=== PATIENT | male | born 1990 | race Two or more races ===

== ENCOUNTER 2018-01-21 17:00 | Outpatient (RCR) | payer OTHER, SELFPAY ==
--- NOTE | 2017-12-24 16:02 | HP.PTEVAL ---
Patient's Visit Information SUNSHINE DONALDSON is a 27 year old M referred to Physical Therapy by CONNER ALMENDAREZ with a diagnosis of Pain in R shoulder. Date of Evaluation: 12/24/17 Physical Therapist: Melanie Crawley - Visit Plan Frequency: 2x /Week Duration: 4 Weeks Plan: 2X/ week for 4 weeks for R shld PROM, AAROM, AROM, postural and scapular strength, RC strength with HEP and modalities PRN. Discussed: avoiding sleeping on R side, avoid sleeping with arm overhead and avoid repetitive movements (especially across body) - Subjective Subjective: R shoulder pain at work and when sleeping. When he goes to raise his arm overhead for 10 seconds and he gets sore and hard to raise his arm over head. When he was younger he thinks that he hurt it and multiple things at the [employer] may have hurt it. It wakes him up at night with numbess and pain. He has pain just passed the elbows and maybe some into the finger. No neck pain. He sleeps with his R arm under head when on stomach or increase pain when lay on R side. He has had an x-ray..... No talk about MRI or injections. He is R handed. This has been going on for 2 years. He has not tried any kind of exercises for it. - Pain R shoulder pain Pain Intensity (Out of 10): 2 Pain Intensity Range: 7 Comment: with winding hose.... - Objective R shld AROM: flex 145 degrees, IT to T12, ER 41 degrees and abd 121 degrees. L shld AROM: flexion 157 degrees, IR to T8, ER 47 degrees, and abd 155 degrees. Posture: rounded shoulders and slouched. Palpation: no tenderness at supraspinatus and under acromion. +HK. +Empty Can test for pain and weakness - Goals Goal 1:: I HEP Goal Time Frame: 2-4 Weeks Goal 2:: Increase R shoulder AROM to equal that of the L (at time of eval: L shld AROM: flexion 157 degrees, IR to T8, ER 47 degrees, and abd 155 degrees) Goal Time Frame: 4-6 Weeks Goal 3:: Be able to real in hose at work with R rhondaler without having pain Goal Time Frame: 4-6 Weeks Goal 4:: Be able to sleep through the night without pain Goal Time Frame: 4-6 Weeks - Rehabilitation Potential Rehabilitation Potential: Excellent - Anticipated Interventions Patient/Client Instruction: Educate patient on: Condition, Plan of Care For the Purpose of:: To decrease pain, To decrease swelling/inflammation, To increase ROM, To improve nutrient delivery to tissue, To improve muscle performance and motor function, To improve ability to perform ADL's, To increase tolerance to activity/condition/position, To improve performance and independence with ADL's, To improve health of tissue, To increase flexibility/ROM Therapeutic Exercise to Include: Strength training, Postural training, Flexibilty training, Passive ROM, Active ROM, Scapular Strength/Stabilization For the Purpose of:: To decrease pain, To decrease swelling/inflammation, To increase ROM, To improve nutrient delivery to tissue, To improve muscle performance and motor function, To improve ability to perform ADL's, To improve health of tissue, To decrease soft tissue restriction, To increase flexibility/ROM Manual Therapy Techniques to Include: Mobilization, Passive ROM For the Purpose of:: To increase ROM, To improve nutrient delivery to tissue IF ES: Yes Cryotherapy (ice pack, ice massage): Yes Ultrasound (thermal/non thermal): Yes For the Purpose of:: To decrease pain, To decrease swelling/inflammation, To increase ROM, To improve nutrient delivery to tissue, To improve muscle performance and motor function, To improve ability to perform ADL's, To increase tolerance to activity/condition/position, To improve health of tissue, To decrease soft tissue restriction, To increase flexibility/ROM Thank you for the opportunity to evaluate your patient. For Medicare and Medicare HMO plans, please review the plan of care and approve it. It will need to be FAXED BACK to us at [phone] for Medicare purposes. Please let me know if there are questions or concerns regarding this plan of care. Physician Signature: Date:
--- NOTE | 2018-01-21 17:24 | HP.PTDCSUM ---
HP - PT D/C Summary It has been my pleasure to treat SUNSHINE DONALDSON under orders from CONNER ALMENDAREZ, for the diagnosis of Pain in R shoulder for a total of 5 visit(s). Discharge Date: 01/21/18 Please see the following information for a summary of their discharge status. - Subjective Subjective: Pt reports that he has pain when he is sleeping and rolled on R side and wakes up. Reaching above his head his R arm gets tired faster. 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 He is doing HEP: IR/ER with Blue band. Pt does not feel that his pain is bad enough to keep him coming to PT and wishes to do a HEP - Pain R shoulder pain Pain Intensity (Out of 10): 2 - Overall Improvement % Improvement: 50 - Objective Objective/Function: AROM: 165 flex. 154 abd R. 61 degrees ER. T12 IR. Posture: pT DOES NEED verbal cues to maintain good posture at times. - Goals Goal 1:: I HEP Goal Progress: Goal Met Goal 2:: Increase R shoulder AROM to equal that of the L (at time of eval: L shld AROM: flexion 157 degrees, IR to T8, ER 47 degrees, and abd 155 degrees) Goal Progress: Goal Met Goal 3:: Be able to real in hose at work with Sami talamatnes without having pain Goal Progress: Progressing Goal 4:: Be able to sleep through the night without pain Goal Progress: Goal Met - Plan Plan: DC PT to HEP - D/C Information Discharge Comments: DC PT to HEP If there are questions or concerns regarding this patient's physical therapy, please feel free to call me at [phone]. Thank you for the referral of this patient. Sincerely, Melanie Crawley
== END 2018-01-21 19:00 | disposition home or self-care (01) ==
LOC: PT 17:00
DX: M25.511 Pain in right shoulder (principal)
CPT/HCPCS: 97014; 97110; 97161; 97530; G0283; G8981; G8982

== ENCOUNTER 2021-01-20 05:46 | Day surgery (SDC) | payer OTHER, SELFPAY ==
[2021-01-20] VITALS (12 sets, daily range): BP systolic 017–147; BP diastolic 58–106; PULSE 62–70; RESP 16–18; TEMP 36.4–36.8; O2SAT 95–100; BMI 27.8
--- NOTE | 2021-01-20 06:13 | PCM.HP.BLA ---
History and Physical Date of Admission: 01/20/21 Intake Visit Reasons: CSCOPE, EGD/ DIARRHEA Chief Complaint: change in bowel habits Pot Liner Required: No Is patient in pain?: No Allergies No Known Allergies Allergy (Verified 01/03/21 14:57) Medications bismuth subsalicylate 262 mg/15 mL oral suspension 524 mg PO Q30-60M PRN 01/03/21 [History Confirmed 01/03/21] multivitamin 1 tab PO DAILY 01/03/21 [History Confirmed 01/03/21] PFSH Medical History (Updated 01/03/21 @ 15:[address] Vinnie Hillman MD) Back pain GERD (gastroesophageal reflux disease) Surgical History (Updated 01/03/21 @ 14:54 by Dayami Pugh) No pertinent past surgical history Family History (Updated 01/03/21 @ 14:55 by Dayami Pugh) Father Colon polyp Social History (Updated 01/03/21 @ 14:55 by Dayami Pugh) Smoking Status: Former smoker HPI HPI HPI: SUNSHINE DONALDSON, is a 30 M who presents to the office today for surgical consultation. The patient is referred by the [facility] with request to proceed with combined esophagogastroduodenoscopy and colonoscopy. A request for targeted biopsies and random biopsies to evaluate for possible IBD and microscopic colitis The patient states that now for 9 years he has had problems with abdominal bloating constipation alternating with diarrhea. Very infrequently he will notice some bright red blood per rectum but that usually after a bout of constipation. Long ago he started psyllium seed fiber which did provide some improvement for the constipation. He also however takes Pepto-Bismol as needed for the diarrhea. While in the he did smoke cigarettes and chew tobacco. He has since departed from the and he quit using tobacco products approximately 2013. He has not had any unexpected weight loss. There is a family history with his father having had colon polyps there is no family history of colon cancer. There is no family history of Crohn's disease or ulcerative colitis. The patient's not had any fever or vomiting. He enjoys lactose-containing products. He does not sense that he is lactose intolerance. He does not sense that he has gluten insufficiency. It is of note that he works for [employer]. He had the symptoms however when he was so I do not sense that the products that he is using are likely the source ROS General General: Yes fatigue; No weight change, appetite, colon cancer, breast cancer or weakness HEENT HEENT: No difficulty swallowing, eye injury, eye surgery, swollen glands or hoarseness Endo Endocrine: No thyroid disease, diabetes mellitus, thyroid cancer, Hair loss, heat intolerance or cold intolerance Musc Musculoskeletal: Yes back problems; No arthritis, rheumatoid arthritis, gout or joint pain Cardio Cardiovascular: No murmur, pacemaker, heart disease, atrial fibrillation, high blood pressure, heart attack, heart stent, palpitations, shortness of breat with exertion or chest pain Psych Psychiatric: No depression, anxiety or hearing voices Resp Respiratory: No shortness of breath, No sleep apnea, No cough, No COPD, No asthma, No emphysema and No wheezing Gastro Gastrointestinal: Yes abdominal pain, No nausea or vomiting, Yes diarrhea, Yes constipation, Yes blood in stool, Yes acid reflux, No hemorrhoids, No ulcers, No gallbladder problem and No black,tarry stools Dirk Hematologic: No blood thinners, No blood disorders, No bleeding, No anemia and No blood clots Neuro Neurologic: No weakness Exam Const General: cooperative, healthy appearing, comfortable and no acute distress Nutritional Appearance: average body habitus Orientation: alert and awake [facility] Head: normal to inspection Eyes General: appearance normal, both eyes and all related structures Neck Neck: normal visual inspection Carotids: normal carotid upstroke and no bruits Chest Chest palpation & inspection: normal inspection of the chest Resp Effort & Inspection: normal respiratory effort Auscultation: clear to auscultation bilaterally Cardio Rate: regular rate Rhythm: regular rhythm GI Palpation: soft and no hepatosplenomegaly Other[place] [facility] [place] Spine: normal cervical lordosis Neuro General: patient alert and patient awake Extrem General: no calf tenderness Psych Appearance: grossly normal Assessment and Plan Assessment and Plan (1) Abdominal pain: Status: Acute Qualifiers: Abdominal location: generalized Qualified Code(s): R10.84 - Generalized abdominal pain (2) Constipation: Status: Acute Qualifiers: Constipation type: unspecified constipation type Qualified Code(s): K59.00 - Constipation, unspecified (3) Diarrhea: Status: Acute Qualifiers: Diarrhea type: unspecified type Qualified Code(s): R19.7 - Diarrhea, unspecified Plan - Dr. Vinnie Hillman MD: 30-year-old gentleman with now available long history of abdominal complaints of generalized discomfort bloating constipation alternating with diarrhea. He has not had any investigative testing today. I do concur with his referring [facility] staff that he would benefit from a esophagogastroduodenoscopy with biopsy and colonoscopy with biopsy or polypectomy if indicated. He is aware of the technique, benefit, risk, alternatives. I agree with focused and random biopsies were appropriate. He has had an opportunity to ask and have questions answered. I did briefly discuss COVID-19 and vaccination recommendations. The patient has respectfully declined. Appreciate the opportunity of assisting with the surgical care Copy: [facility] Vinnie Hillman M.D., F.A.C.S. I have re-examined the patient. There are no clinical changes since date of exam. Vinnie Hillman M.D., F.A.C.S.
[2021-01-20] MEDS: Lactated Ringers 1,000 ML 15 ML IV (06:30)
--- NOTE | 2021-01-20 07:00 | EGD_PTH ---
PATIENT: SUNSHINE DONALDSON LOC: EN U#:[id number] AGE/SX: 30/M ROOM: RE01/20/[address]: Dr. Vinnie Hillman MD : 1990 BED: DIS: 01/20/2021 SPEC #: [id number] RECD: 01/20/21 10:31 STATUS: [facility]IT [facility]WS #: [id number] THELMA: 01/20/21 07:[address]: Vinnie Hillman DEPT: SURGICAL PATHOLOGY RECD BY: Marlen Jeffrey ENTERED: 01/20/21 11:49 SP TYPE: EGD BIOPSY OTHR DR: [facility] Tissues: A - Duodenum, NOS B - Gastric mucous membrane C - Esophagus, NOS D - Esophagus, NOS E - COLON BIOPSY Procedures: Special Stain Group II Surgery Specimen Level IV Alcian Blue/PAS (control) HEADER OPERATION: Colonoscopy, EGD (MOD) PRE-OP DIAGNOSIS: Acute abdominal pain, acute constipation, acute diarrhea TISSUE SUBMITTED: A ? Duodenum biopsy, B ? Antrum biopsy for H. pylori and path, C ? Distal esophagus biopsy, D ? Mid esophagus biopsy, E ? Random colonic biopsy MICROSCOPIC DIAGNOSIS A. Duodenum, biopsy: A fragment of duodenal mucosa, no pathologic diagnosis. B. Antrum, biopsy: Mild gastritis. See microscopic description and comment. C. Distal esophagus, biopsy: Fragments of gastroesophageal mucosa with moderate chronic inflammation. Intestinal metaplasia (goblet cell metaplasia) not identified. See comment. D. Mid esophagus, biopsy: Fragments of squamous epithelium, no pathologic diagnosis. E. Colon, random biopsy: Fragments of colonic mucosa, no pathologic diagnosis. SJ:rg 01/23/2021 COMMENT B. The results of immunohistochemistry for Helicobacter pylori will be reported separately ([id number]). C. Alcian blue/PAS stain with matched control is used in the evaluation of the specimen. MICROSCOPIC DESCRIPTION Slides are reviewed. B. The specimen shows fragments of gastric mucosa with chronic inflammatory cell infiltrates in the lamina propria consisting of lymphocytes and plasma cells, consistent with mild chronic gastritis. GROSS DESCRIPTION A - Received in fixative is one container labeled with the patient's name and designated duodenum biopsy. The specimen consists of one irregular fragment of light bains soft tissue that measures 0.5 x 0.3 x 0.1 cm. The specimen is totally submitted in one cassette. B - Received in fixative is one container labeled with the patient's name and designated gastric antrum. The specimen consists of one irregular fragment of light bains soft tissue that measures 0.5 x 0.3 x 0.1 cm. The specimen is totally submitted in one cassette. C - Received in fixative is one container labeled with the patient's name and designated distal esophagus biopsy. The specimen consists of multiple irregular fragments of light bains soft tissue that in aggregate measure 1 x 0.5 x 0.1 cm. The specimen is totally submitted in one cassette. D - Received in fixative is one container labeled with the patient's name and designated mid esophagus biopsy. The specimen consists of multiple irregular fragments of light bains soft tissue that in aggregate measure 0.5 x 0.2 x 0.1 cm. The specimen is totally submitted in one cassette. E - Received in fixative is one container labeled with the patient's name and designated random colon biopsy. The specimen consists of multiple irregular fragments of light bains soft tissue that in aggregate measure 2 x 0.7 x 0.1 cm. The specimen is totally submitted in one cassette. / AM:jacob 01/20/21 TC:3 CPT: 51682 x5, 14550
--- NOTE | 2021-01-20 07:00 | IMM_PTH ---
PATIENT: SUNSHINE DONALDSON LOC: EN U#:[id number] AGE/SX: 30/M ROOM: RE01/20/[address]: Dr. Vinnie Hillman MD : 1990 BED: DIS: 01/20/2021 SPEC #: [id number] RECD: 01/20/21 13:35 STATUS: MOHIT REQ #: [id number] THELMA: 01/20/21 07:[address]: Vinnie Hillman DEPT: IMMUNOHISTOCHEMISTRY RECD BY: Soraida Hope ENTERED: 01/20/21 13:35 SP TYPE: IMMUNO OTHR DR: [facility] Tissues: B - Stomach, NOS Procedures: H Pylori (initial) PHYSICIAN & INSTITUTION [place] [id number] SPECIMEN INFORMATION: Tissue Source: B ? Antrum biopsy Clinical Info: Acute abdominal pain, acute constipation, acute diarrhea Specimen Number: [id number] CPT code: 50569 METHODOLOGY: Deparaffinized sections of prefer/formalin-fixed tissue or PAP/DQ stained slides are incubated with monoclonal/polyclonal antibodies/oligonucleotide probes. Localization is made via biotin free immunoperoxidase method. Appropriate controls are performed and reacted as expected. Results on target cell population are indicated in the following table: RESULTS: ANTIBODY / CLONE RESULT Block B H Pylori (polyclonal) negative These tests were developed and their performance characteristics determined by [facility]. They may not have been cleared or approved by the U.S. Food and Drug Administration. The FDA has determined that such clearance or approval is not necessary. INTERPRETATION: B. Antrum biopsy: Negative for Helicobacter pylori organisms. LOBO:jacob 01/23/2021
[2021-01-20] MEDS: Midazolam 5 MG/ML Syringe ×2 (07:05)
[2021-01-20] MEDS: DiphenhydrAMINE 50 MG/ML Syringe (07:05)
--- NOTE | 2021-01-20 07:41 | OP.CCLET_ITS ---
01/20/2021 [facility] Re : Upper GI endoscopy procedure for [facility] This procedure was performed on Wednesday, January 20, 2021. My impressions and recommendations are as follows: Impressions : - LA Grade A reflux esophagitis. Biopsied. - Z-line variable, 40 cm from the incisors. - Small hiatal hernia. - Erythematous mucosa in the antrum. Biopsied. - Normal examined duodenum. Biopsied. Recommendations : - Discharge patient to home. - Resume previous diet. - Continue present medications. - Telephone my office for pathology results in 1 week. Will await path results prior to further recommendations. Hiatal hernia and reflux changes noted but all findings appear somewhat mild. My findings are described in the full procedure note, which is enclosed. If I can be of further assistance, please feel free to contact me at Doctor phone number(s): Work: . Sincerely, Vinnie Hillman MD 01/20/2021 7:41:27 AM This report has been signed electronically.
--- NOTE | 2021-01-20 07:41 | OP.EGD_ITS ---
Patient Name: Lul Mckeon Procedure Date: 01/20/2021 6:58 AM Date of : 1990 Age: 30 Procedure: Upper GI endoscopy Indications: Generalized abdominal pain Providers: Vinnie Hillman MD Medicines: Midazolam 5 mg IV, Meperidine 100 mg IV, Diphenhydramine 25 mg IV Complications: No immediate complications. Procedure: Pre-Anesthesia Assessment: - Prior to the procedure, a History and Physical was performed, and patient medications and allergies were reviewed. The patient's tolerance of previous anesthesia was also reviewed. The risks and benefits of the procedure and the sedation options and risks were discussed with the patient. All questions were answered, and informed consent was obtained. Prior Anticoagulants: The patient has taken no previous anticoagulant or antiplatelet agents. ASA Grade Assessment: II - A patient with mild systemic disease. After reviewing the risks and benefits, the patient was deemed in satisfactory condition to undergo the procedure. After obtaining informed consent, the endoscope was passed under direct vision. Throughout the procedure, the patient's blood pressure, pulse, and oxygen saturations were monitored continuously. The gastroscope was introduced through the mouth, and advanced to the second part of duodenum. The upper GI endoscopy was accomplished without difficulty. The patient tolerated the procedure well. Moderate Sedation: Moderate (conscious) sedation was personally administered by the endoscopist. The following parameters were monitored: oxygen saturation, heart rate, blood pressure, and response to care. Total physician intraservice time was 15 minutes. Scope In: 7:10:42 AM Scope Out: 7:19:19 AM Total Procedure Duration Time 0 hours 8 minutes 37 seconds Findings: LA Grade A (one or more mucosal breaks less than 5 mm, not extending between tops of 2 mucosal folds) esophagitis with no bleeding was found 40 cm from the incisors. Biopsies were taken with a cold forceps for histology. The Z-line was variable and was found 40 cm from the incisors. A small hiatal hernia was present. Diffuse mildly erythematous mucosa without bleeding was found in the gastric antrum. This was biopsied with a cold forceps for histology. The examined duodenum was normal. Biopsies were taken with a cold forceps for histology. Impression: - LA Grade A reflux esophagitis. Biopsied. - Z-line variable, 40 cm from the incisors. - Small hiatal hernia. - Erythematous mucosa in the antrum. Biopsied. - Normal examined duodenum. Biopsied. Recommendation: - Discharge patient to home. - Resume previous diet. - Continue present medications. - Telephone my office for pathology results in 1 week. Will await path results prior to further recommendations. Hiatal hernia and reflux changes noted but all findings appear somewhat mild. Procedure Code(s): --- Professional --- 91417, Esophagogastroduodenoscopy, flexible, transoral; with biopsy, single or multiple 60634, 59, Moderate sedation services provided by the same physician or other qualified health patient care provider performing the diagnostic or therapeutic service that the sedation supports, requiring the presence of an independent trained observer to assist in the monitoring of the patient's level of consciousness and physiological status; initial 15 minutes of intraservice time, patient age 5 years or older Diagnosis Code(s): --- Professional --- K21.0, Gastro-esophageal reflux disease with esophagitis K22.8, Other specified diseases of esophagus K44.9, Diaphragmatic hernia without obstruction or gangrene K31.89, Other diseases of stomach and duodenum R10.84, Generalized abdominal pain CPT copyright 2017 [employer]. All rights reserved. The codes documented in this report are preliminary and upon skiff operator review may be revised to meet current compliance requirements. Vinnie Hillman MD 01/20/2021 7:41:27 AM This report has been signed electronically. Number of Addenda: 0 Note Initiated On: 01/20/2021 6:58 AM
--- NOTE | 2021-01-20 07:44 | OP.COLON_ITS ---
Patient Name: Lul Mckeon Procedure Date: 01/20/2021 7:20 AM Date of : 1990 Age: 30 Procedure: Colonoscopy Indications: Generalized abdominal pain, Clinically significant diarrhea of unexplained origin Providers: Vinnie Hillman MD Medicines: Midazolam 1.5 mg IV, Meperidine 50 mg IV Patient Profile: Last Colonoscopy: none. The patient's first colonoscopy is today. Complications: No immediate complications. Procedure: Pre-Anesthesia Assessment: - Prior to the procedure, a History and Physical was performed, and patient medications and allergies were reviewed. The patient's tolerance of previous anesthesia was also reviewed. The risks and benefits of the procedure and the sedation options and risks were discussed with the patient. All questions were answered, and informed consent was obtained. Prior Anticoagulants: The patient has taken no previous anticoagulant or antiplatelet agents. ASA Grade Assessment: II - A patient with mild systemic disease. After reviewing the risks and benefits, the patient was deemed in satisfactory condition to undergo the procedure. After I obtained informed consent, the scope was passed under direct vision. Throughout the procedure, the patient's blood pressure, pulse, and oxygen saturations were monitored continuously. The Colonoscope was introduced through the anus and advanced to the cecum, identified by appendiceal orifice and ileocecal valve. The colonoscopy was performed without difficulty. The patient tolerated the procedure well. The quality of the bowel preparation was good. The ileocecal valve and the appendiceal orifice were photographed. Moderate Sedation: Moderate (conscious) sedation was administered by the endoscopy nurse and supervised by the endoscopist. The following parameters were monitored: oxygen saturation, heart rate, blood pressure, and response to care. Total physician intraservice time was 15 minutes. Scope In: 7:23:55 AM Scope Withdrawal Time 0 hours 6 minutes 42 seconds Scope Out: 7:35:21 AM Total Procedure Duration Time 0 hours 11 minutes 26 seconds Findings: The perianal and digital rectal examinations were normal. The colon (entire examined portion) appeared normal. Biopsies for histology were taken with a cold forceps from the entire colon for evaluation of microscopic colitis. Impression: - The entire examined colon is normal. Biopsied. Recommendation: - Discharge patient to home. - Resume previous diet. - Continue present medications. - Repeat colonoscopy age 49 for screening purposes. - Telephone my office for pathology results in 1 week. Colon what normal in appearance, random biopsy results pending. Procedure Code(s): --- Professional --- 25559, Colonoscopy, flexible; with biopsy, single or multiple 55125, 59, Moderate sedation services provided by the same physician or other qualified health healthcare specialist performing the diagnostic or therapeutic service that the sedation supports, requiring the presence of an independent trained observer to assist in the monitoring of the patient's level of consciousness and physiological status; initial 15 minutes of intraservice time, patient age 5 years or older Diagnosis Code(s): --- Professional --- R10.84, Generalized abdominal pain R19.7, Diarrhea, unspecified CPT copyright 2017 [employer]. All rights reserved. The codes documented in this report are preliminary and upon director of labor and delivery review may be revised to meet current compliance requirements. Vinnie Hillman MD 01/20/2021 7:44:32 AM This report has been signed electronically. Number of Addenda: 0 Note Initiated On: 01/20/2021 7:20 AM
--- NOTE | 2021-01-20 07:45 | OP.CCLET_ITS ---
01/20/2021 [facility] Re : Colonoscopy procedure for Lul [facility] This procedure was performed on Wednesday, January 20, 2021. My impressions and recommendations are as follows: Impressions : - The entire examined colon is normal. Biopsied. Recommendations : - Discharge patient to home. - Resume previous diet. - Continue present medications. - Repeat colonoscopy age 49 for screening purposes. - Telephone my office for pathology results in 1 week. Colon what normal in appearance, random biopsy results pending. My findings are described in the full procedure note, which is enclosed. If I can be of further assistance, please feel free to contact me at Doctor phone number(s): Work: . Sincerely, Vinnie Hillman MD 01/20/2021 7:44:32 AM This report has been signed electronically.
== END 2021-01-20 08:21 | disposition home or self-care (01) ==
LOC: EN 05:50 → AC 05:50
PROVIDERS: Referring Provider Surgery; Visit Provider Surgery
PROC: 0DJD8ZZ Inspection of Lower Intestinal Tract, Via Natural or Artificial Opening Endoscopic (ICD-10-PCS; CPT 45378; principal; 2021-01-20 06:55)
DX: K21.00 Gastro-esophageal reflux disease with esophagitis, without bleeding (principal); K22.89 Other specified disease of esophagus; K29.70 Gastritis, unspecified, without bleeding; K44.9 Diaphragmatic hernia without obstruction or gangrene; K59.00 Constipation, unspecified; R10.84 Generalized abdominal pain; R19.7 Diarrhea, unspecified; Z20.822 Contact with and (suspected) exposure to COVID-19; Z87.891 Personal history of nicotine dependence; Z83.71 Family history of colonic polyps
CPT/HCPCS: 43239; 45380; 87426; 88305; 88313; 88342; 99152; 99153; C9803; J7120

== ENCOUNTER → 2022-11-24 | Outpatient (CLI) | payer OTHER, SELFPAY ==
--- NOTE | 2022-11-24 09:00 | US_ITS ---
INDICATION: ABN RESULTS OF LIVER FUNCTION TESTS EXAMINATION: Ultrasound US Abdomen Limited (quadrant) TECHNIQUE: Alexander scale and color doppler imaging was performed of the right upper quadrant. COMPARISON: None. FINDINGS: LIVER: 14.7 cm length. Increased echogenicity. Main portal vein patent. GALLBLADDER Size: Distended. Stones: None. Wall thickness: Not thickened. 2 mm. Pericholecystic fluid: None. Sonographic Case sign: Negative. EXTRAHEPATIC BILE DUCTS: Common bile duct 3 mm not dilated. PANCREAS: Visualized portions unremarkable. RIGHT KIDNEY: No hydronephrosis. ASCITES: None. US/Abdomen Limited IMPRESSION: Fatty infiltration of liver. Electronically Signed: Bev Negro MD at 6:45 EDT ,
== END | disposition home or self-care (01) ==
LOC: US 08:42
DX: R79.89 Other specified abnormal findings of blood chemistry (principal)
CPT/HCPCS: 76705